=== PATIENT | female | born 2000 | race Caucasian/White ===

== ENCOUNTER 2019-02-27 02:00 | Inpatient (IN) | payer MEDICAID ==
[~2019-02-27] VITALS: Ht 167.6 cm; Wt 96.6 kg
[2019-02-27] VITALS (11 sets, daily range): BP systolic 109–141; BP diastolic 59–76; PULSE 57–89; RESP 17–20; Ht 167.6 cm; Wt 96.6 kg
[2019-02-27] MEDS ORDERED: PREN-6 PO (02:20)
[2019-02-27] MEDS ORDERED: FERR256T PO (02:21)
[2019-02-27] MEDS ORDERED: OXYTOCIN 30 UNITS/LR 500 ML IV PRN ×2 (03:00→13:30)
[2019-02-27] MEDS ORDERED: LIDOCAINE 1% (MPF) 30 ML INJ INJ PRN (03:00)
[2019-02-27] MEDS ORDERED: BUTORPHANOL 2 MG INJ IV PRN (03:00)
[2019-02-27] MEDS ORDERED: MISOPROSTOL 200 MCG TAB PR PRN ×2 (03:00→13:30)
[2019-02-27] MEDS ORDERED: CARBOPROST 250 MCG INJ IM PRN ×2 (03:00→13:30)
[2019-02-27] MEDS ORDERED: OXYTOCIN 30 UNITS/LR 500 ML IV SCH ×2 (03:00)
[2019-02-27] MEDS ORDERED: METHYLERGONOVINE 0.2 MG INJ IM PRN ×2 (03:00→13:30)
--- NOTE | 2019-02-27 04:30 | TRIAGE ---
OB Triage Datetime Report Generated by CPN: 02/27/2019 04:30 Datetime: 02/27/2019 03:40 Stage of : Labor Labor Evaluation Frequency: 1-4 Monitor Mode: External Duration (sec)2399: 60-120 Quality: Moderate Pattern: Normal: <= 5 Contractions in 10 Minutes Resting Tone Rufus: Relaxed Heart Rate FHR Baseline Rate: 135 Monitor Mode: External US Variability: Moderate 6-25 bpm Accelerations: 15X15 Decelerations: None Category: Category I Datetime: 02/27/2019 02:40 Stage of : OB Triage Temperature Route: Oral Labor Evaluation Frequency: 6-7 Monitor Mode: External Duration (sec)2399: 50-140 Quality: Strong Pattern: Normal: <= 5 Contractions in 10 Minutes Resting Tone Rufus: Relaxed Heart Rate FHR Baseline Rate: 130 Monitor Mode: External US Variability: Moderate 6-25 bpm Accelerations: 15X15 Decelerations: None Category: Category I Pain Assessment Pain Scale: 6 Pain Presence: Intermittent Pain Type: Crushing; Sharp Pain Location: Abdomen; Back Pain Goal: 5 Pain Relief Measures: Comfort Measures Datetime: 02/27/2019 02:38 Vaginal Exam Dilatation (cms): 4.0 Effacement (%): 90 Station: -1 Exam By: STARLA Vaginal Bleeding: None Cervix, Consistency: Soft Cervix, Position: Midposition Datetime: 02/27/2019 02:23 Time of Arrival: 02/27/2019 02:00 EGA: 38.4 Arrived By: Wheelchair Arrived From: Home Chief Complaint: CONTRCTIONS SINCE 2319 Movement: Present Contractions: Regular Contractions: Q 5 Rupture of Membranes: Denies Vaginal Discharge: Denies Time Provider Notified: 02/27/2019 03:23 Provider Notified: delshad Initial Plan: EFM, ASSESSMENT, CALL MD FOR ORDERS Datetime: 02/27/2019 02:22 Assessment Type: Triage Maternal Assessment Level of Consciousness: Fully Conscious DTR's/Clonus: DTRs 2+; No Clonus Headache: Denies Blurred Vision: No Respiratory Effort: Unlabored; Regular Rhythm; Equal Expansion Breath Sounds, Left: Clear and Equal Breath Sounds, Right: Clear and Equal Nausea/Vomiting: Denies RUQ Epigastric Pain: Denies Lower Extremities Edema: None Upper Extremities Edema: None Facial Edema: None Fall Risk Assessment History of Falling: (0) No Secondary Diagnosis: (0) No Ambulatory Aid: (0) Bedrest/Nurse Assist IV Therapy: (0) No Gait: (0) Normal/Bedrest/Immobile Mental Status: (0) Oriented to Own Ability Fall Score: 0 Fall Risk Score Definition: No Risk: No action required
[2019-02-27] MEDS: LACTATED RINGER'S 1,000 ML IV SCH ×3 (04:39→07:36)
--- NOTE | 2019-02-27 04:43 | PREAC ---
Date/Time of Note Date/Time of Note DATE: 02/27/19 TIME: 04:43 Anesthesia Eval and Record Evaluation Time Pre-Procedure Interview DATE: 02/27/19 TIME: 04:43 Age 18 Sex female NPO: Other Preoperative diagnosis labor pain Planned procedure epidural Past Medical History Past Medical History: None Surgery & Anesthesia Issues No known issue Meds Anticoagulation: No Beta Kumar within 24 hr: No Reason Beta Kumar not given: Pt. not on B-Kumar Reported Medications Ferrous Gluconate (Iron) 256 Mg Tablet, 256 MG PO DAILY, TAB 02/27/19 Vits #93-Iron Fum-FA ( Formula) 1 Each Tablet, 1 TAB PO DAILY, TAB 02/27/19 Current Medications Lactated Ringer's 1,000 ml @ 125 mls/hr Q8H IV Last administered on 02/27/19at 04:39; Admin Dose 125 MLS/HR; Start 02/27/19 at 02:56 Butorphanol Tartrate (Stadol) 2 mg Q2H PRN IV .PAIN; Start 02/27/19 at 03:00 Lidocaine (Xylocaine 1% (Mpf)) 30 ml ONCE PRN INJ .EPISIOTOMY; Start 02/27/19 at 03:00 Oxytocin/Lactated Ringer's 500 ml @ 500 mls/hr ONCE POST IV ; Start 02/27/19 at 03:00 Oxytocin/Lactated Ringer's 500 ml @ 125 mls/hr POST IV ; Start 02/27/19 at 03:00 Oxytocin/Lactated Ringer's 500 ml @ 0 mls/hr ONCE PRN IV .VAGINAL BLEEDING; Start 02/27/19 at 03:00 Methylergonovine Maleate (Methergine) 0.2 mg ONCE PRN IM .VAGINAL BLEEDING; Start 02/27/19 at 03:00 Carboprost Tromethamine (Hemabate) 250 mcg ONCE PRN IM .VAGINAL BLEEDING; Start 02/27/19 at 03:00 Misoprostol (Cytotec) 1,000 mcg ONCE PRN MA .VAGINAL BLEEDING; Start 02/27/19 at 03:00 Meds reviewed: Yes Allergies Coded Allergies: No Known Allergy (Unverified , 02/27/19) Allergies Reviewed: Yes Labs/Studies Labs Reviewed: Reviewed by anesthesiologist Result Diagram: 02/27/19 0400 Laboratory Tests 02/27/19 04:00 test: N/A Pre-procedure Exam Airway: Adequate mouth opening, Adequate thyromental dist Mallampati: Mallampati II Teeth: Normal Lung: Normal Heart: Normal ASA Physical Status ASA physical status: 2 Emergency: None Pre-operative Attestations Prior to commencing anesthesia and surgery, the patient was re-evaluated, there was verification of: *The patient's identity *The results of appropriate recent lab work and preoperative vital signs *The above evaluation not changing prior to induction *Anesthetic plan, risk benefits, alternative and complications discussed with patient/family; questions answered; patient/family understands, accepts and wishes to proceed. MANUELITO CHILDRESS DO Feb 27, 2019 04:43
[2019-02-27] MEDS ORDERED: FENTAnyl 2MCG/ML-ROPIV 0.2% 100 ML ONE (04:46)
[2019-02-27] MEDS ORDERED: FENTAnyl 2MCG/ML-ROPIV 0.2% 100 ML BAG EPI SCH (05:00)
[2019-02-27] MEDS ORDERED: NALOXONE (0.4 MG/ML) INJ IV PRN (05:00)
--- NOTE | 2019-02-27 07:07 | PAC ---
Date/Time of Note Date/Time of Note DATE: 02/27/19 TIME: 07:06 Post-Anesthesia Notes Post-Anesthesia Note Last documented vital signs 120/62 80 99% 23 98.2 Activity: WNL Respiratory function: WNL Cardiovascular function: WNL Mental status: Baseline Pain reasonably controlled: Yes Hydration appropriate: Yes Nausea/Vomiting absent: Yes MANUELITO CHILDRESS DO Feb 27, 2019 07:07
[2019-02-27] MEDS ORDERED: MINERAL OIL LIGHT 10 ML VIAL TOP ONE (08:00)
[2019-02-27] MEDS ORDERED: IBUPROFEN 600 MG TAB PO PRN (08:00)
--- NOTE | 2019-02-27 10:40 | HP ---
Date/Time of Note Date/Time of Note DATE: 02/27/19 TIME: 10:37 OB - History Hx of Present Chief Complaint: contractions Estimated Due Date: March 09, 2019 : 2 Para: 0 Spontaneous : 1 Therapeutic : 0 Care: Limited Care Ultrasounds: Normal mid trimester US Obstetrical Complications: None Medical Complications: None Past Family/Social History * Past Medical, Surgical, Family and Obstetric Histories reviewed from chart. GBS Status: Negative OB Admission Exam Vital Signs Vital Signs Vital Signs Date Temp Pulse Resp B/P (MAP) Pulse Ox O2 O2 Flow FiO2 Time Delivery Rate 02/27/19 98.4 66 20 136/76 Room Air 07:38 (96) Physical Exam HEENT: WNL Heart: Rhythm Normal Lungs: Clear, Equal Abdomen: WNL Extremities: Normal Reflexes: Normal Cervical Dilatation: 4cm Effacement: 100% Station: -1 Membranes: Intact Heart Rate: 120's Accelerations: Accelerations Present Decelerations: No Decelerations Varibility: Moderate Last 72 hours Lab Results CBC & BMP 02/27/19 04:00 OB Assessment/Plan Reason for admission: active labor Plan: Expectant Management HUY DEAN MD Feb 27, 2019 10:39
--- NOTE | 2019-02-27 11:53 | LDN ---
Date/Time of Note Date/Time of Note DATE: 02/27/19 TIME: 11:51 Delivery Summary Weeks of Gestation 38 weeks Placenta Delivered: Spontaneously Meconium: none Episiotomy: No Laceration repair: Vaginal laceration repaired with 3-0 Vicryl. Anesthesia type: Epidural Estimated blood loss: 300 Sponge & Needle done & correct: Yes All needle counts correct: Yes Any foreign bodies felt in the: No Delivery Information Sex Infant Sex: female Apgars 1 Minute: 9 5 Minute: 9 Suctioning Nose & mouth suctioned at lillie: No Delee suction performed: No Umbilical Cord Umbilical cord with: 3 Vessels Cord presentations: no nuchal cord Cord Blood was obtained: Yes Mother & Baby Disposition Disposition Mom & Baby to Maternity; Good: Yes HUY DEAN MD Feb 27, 2019 11:53
[2019-02-27] MEDS ORDERED: HYDROCODONE/APAP (5/325) TAB PO PRN (13:30)
[2019-02-27] MEDS ORDERED: DIBUCAINE 1% 30 GM OINT TOP PRN (13:30)
[2019-02-27] MEDS ORDERED: ACETAMINOPHEN 325 MG TAB PO PRN (13:30)
[2019-02-27] MEDS ORDERED: BENZOCAINE 20% 56 ML SPRAY TOP PRN (13:30)
[2019-02-27] MEDS: WITCH HAZEL/GLYCERIN PAD PR PRN (14:27)
[2019-02-27] MEDS: LACTATED RINGER'S 1,000 ML IV* SCH ×2 (15:31→21:19)
[2019-02-27] MEDS: IBUPROFEN 600 MG TAB PO SCH (18:33)
[2019-02-27] MEDS: SENNA/DOCUSATE NA (8.6MG/50MG) TAB PO SCH (20:53)
[2019-02-28] VITALS: BP 112/56
[2019-02-28] MEDS: IBUPROFEN 600 MG TAB PO SCH ×4 (00:30→18:36)
[2019-02-28 04:10] VITALS: BP 101/52
[2019-02-28] MEDS: LACTATED RINGER'S 1,000 ML IV* SCH (05:19)
[2019-02-28 08:15] VITALS: BP 118/57
[2019-02-28] MEDS: SENNA/DOCUSATE NA (8.6MG/50MG) TAB PO SCH ×2 (08:35→21:23)
--- NOTE | 2019-02-28 15:50 | DS ---
Date/Time of Note Date/Time of Note DATE: 02/28/19 TIME: 15:50 Obstetrical Discharge Record Final Diagnosis Final Diagnosis: Term delivered Vaginal Delivery Obstetrical Delivery: Spontaneous Condition on Discharge Physical Assessment Voiding: Yes Bowel Movement: Yes Breast: Soft, non-tender, Filling Fundus: Firm Calf Tenderness: No Patient Condition: Stable HUY DEAN MD Feb 28, 2019 15:50
[2019-02-28 16:15] VITALS: BP 134/53
[2019-02-28 20:05] VITALS: BP 121/60
[2019-03-01] MEDS: IBUPROFEN 600 MG TAB PO SCH ×3 (00:15→11:46)
[2019-03-01 05:05] VITALS: BP 118/58
[2019-03-01 08:30] VITALS: BP 120/68
[2019-03-01] MEDS ORDERED: DIPHTH/TET/ACEL PERTUSS (ADULT) 0.5 ML VIAL IM* ONE (09:00)
[2019-03-01] MEDS: SENNA/DOCUSATE NA (8.6MG/50MG) TAB PO SCH (09:00)
[2019-03-01] MEDS ORDERED: LANOLIN HPA 1 PKT TOP PRN (11:00)
[2019-03-01] MEDS: WITCH HAZEL/GLYCERIN PAD PR PRN (11:46)
--- NOTE | 2019-03-02 15:30 | DELSUM ---
Delivery Summary A-C Datetime Report Generated by N: 03/02/2019 15:30 DELIVERY PERSONNEL Analytical Scientist: Badgett, Mary Anne MATERNAL INFORMATION Delivery Anesthesia: Epidural Medications in Delivery: pitocin, methergine at 1103am Delivery QBL (ml): 300 Placenta Cultured: No Maternal Complications: Other RN Comments: late entry from [place], 18yrs old LABOR SUMMARY EDC: 03/09/2019 00:00 No. Babies in Womb: 1 Attempted: No Labor Anesthesia: Epidural LABOR INFORMATION Reason for Induction: Not Applicable Onset of Labor: 02/26/2019 23:20 Complete Dilatation: 02/27/2019 10:25 (Annotations: Data stored by [facility] on behalf of user) Oxytocin: N/A Group B Beta Strep: Negative Antibiotics # of Doses: 0 Steroids Given: None Reason Steroids Not Administered: Not Applicable MEMBRANES Membranes Rupture Method: Artificial Rupture of Membranes: 02/27/2019 10:25 Length of Rupture (hr): 0.52 Amniotic Fluid Color: Clear Amniotic Fluid Amount: Moderate Amniotic Fluid Odor: Normal STAGES OF LABOR Stage 1 hr: 11 Stage 1 min: 5 Stage 2 hr: 0 Stage 2 min: 31 Stage 3 hr: 0 Stage 3 min: 4 Total Time in Labor hr: 11 Total Time in Labor min: 40 VAGINAL DELIVERY Episiotomy: None Laceration Extension: First Degree Laceration Type: Perineal Initial Vag Sponge Count: 10 Final Vag Sponge Count: 10 Initial Vag Sharps Count: 2 Final Vag Sharps Count: 2 Sponge Count Correct: Yes Sharps Count Correct: Yes BABY A INFORMATION Infant Delivery Date/Time: 02/27/2019 10:56 Method of Delivery: Vaginal Born in Route : No : N/A Forceps: N/A Vacuum Extraction: N/A Shoulder Dystocia : No SHOULDER DYSTOCIA BABY A Infant Delivery Date/Time: 02/27/2019 10:56 PRESENTATION/POSITION BABY A Presentation: Cephalic Cephalic Presentation: Vertex Vertex Position: Left Occipital Anterior Breech Presentation: N/A PLACENTA INFORMATION BABY A Placenta Delivery Time : 02/27/2019 11:00 Placenta Method of Delivery: Spontaneous Placenta Status: Delivered SCORES BABY A Heart Rate 1 min: >100 bpm Resp Effort 1 min: Good Cry Reflex Irritability 1 min: Cough/Sneeze/Pulls Away Muscle Tone 1 min: Active Motion Color 1 min: Body Bolan, Extremit Blue Resuscitation Effort 1 min: Tactile Stimulation SCORE 1 MIN: 9 Heart Rate 5 min: >100 bpm Resp Effort 5 min: Good Cry Reflex Irritability 5 min: Cough/Sneeze/Pulls Away Muscle Tone 5 min: Active Motion Color 5 min: Body Bolan, Extremit Blue Resuscitation Effort 5 min: Tactile Stimulation SCORE 5 MIN: 9 INFORMATION BABY A Gestational Age at Delivery: 38.4 Gestational Status: Early Term- 37- 38.6 Weeks Outcome : Liveborn Infant Condition : Stable Infant Sex: Female IDENTIFICATION/MEDS BABY A ID Band Number: [id number] ID Band Location: Right Leg; Left Arm Sensor Applied: Yes Sensor Number: [id number] Sensor Location : Cord Clamp Vitamin K Given : Not Given Erythromycin Given: Not Given WEIGHT/LENGTH BABY A Infant Birthweight (gm): 3580 Weight (lb): 7 Weight (oz): 14 Infant Length (in): 20.00 Length (cm): 50.80 CORD INFORMATION BABY A No. Cord Vessels: 3 Nuchal Cord : N/A Cord Blood Taken: Yes Suction: Mouth; Nose ASSESSMENT BABY A Complications: Other Infant Complications- Other: 19YR OLD MOM, LATE ENTRY Physical Findings at Delivery: Within Normal Limits Respirations: Appears Normal Cook Short Order/ALS Called : Yes Infant Care By: JOLENE Transferred To: Remains with Mother
== END 2019-03-01 14:05 | disposition home or self-care (01) | DRG 807 ==
LOC: OBT 02:00 → L-D 02:00 → OBT 02:50 → PP1 12:52
PROVIDERS: ADMIT Obstetrics & Gynecology; ATTEND Obstetrics & Gynecology
PROC: 10E0XZZ Delivery of Products of Conception, External Approach (ICD-10-PCS; principal; 2019-02-27)
PROC: 0UQGXZZ Repair Vagina, External Approach (ICD-10-PCS; 2019-02-27)
PROC: 4A1HXCZ Monitoring of Products of Conception, Cardiac Rate, External Approach (ICD-10-PCS; 2019-02-27)
PROC: 3E0234Z Introduction of Serum, Toxoid and Vaccine into Muscle, Percutaneous Approach (ICD-10-PCS; 2019-03-01)
DX: O71.4 Obstetric high vaginal laceration alone (principal); Z37.0 Single live birth; Z3A.38 38 weeks gestation of pregnancy; Z23 Encounter for immunization
CPT/HCPCS: 62322; 80307; 85025; 85610; 85730; 86592; 86850; 86900; 86901; 90715; G0463; J2210; J2590; J3010; J7120